=== PATIENT | male | born 1975 | race Caucasian/White ===

== ENCOUNTER 2016-06-28 04:01 | Emergency (ER) | payer SELFPAY ==
[2016-06-28] MEDS ORDERED: IPRATROPIUM/ALBUTEROL 3 ML NEB INH STA (04:29)
[2016-06-28] MEDS ORDERED: IPRATROPIUM/ALBUTEROL 3 ML NEB INH ONE (04:49)
[2016-06-28] MEDS ORDERED: ALBUTEROL 8 GM INHALER INH ONE (04:49)
[2016-06-28] MEDS ORDERED: ALBUTEROL 8 GM INHALER INH STA (04:54)
== END 2016-06-28 05:10 | disposition home or self-care (01) ==
DX: J45.21 Mild intermittent asthma with (acute) exacerbation (principal)
CPT/HCPCS: 94640; 99283; A9270; J7620